=== PATIENT | male | born 1995 | race Caucasian/White ===

== ENCOUNTER 2016-10-05 15:43 | Inpatient (IN) | payer OTHER ==
--- NOTE | 2016-10-05 16:13 | EDPHY ---
H & P Stated Complaint: R jaw pain;?TMJ;got acupuncture last Sat & Mon; started swelling yesterday Time Seen by Provider: 10/05/16 16:12 - Personal History Current Tetanus Diphtheria and Acellular Pertussis (TDAP): Yes Tetanus Vaccine Date: < 10 years - Medical/Surgical History Hx Asthma: No Hx Chronic Respiratory Disease: No Hx Diabetes: No Hx Cardiac Disease: No Hx Renal Disease: No Hx Cirrhosis: No Hx Alcoholism: No Hx HIV/AIDS: No Hx Splenectomy or Spleen Trauma: No Other PMH: cleft lip surgery, testicular torsion prevention, tonsilectomy - Social History Smoking Status: Never smoked Constitutional: Initial Vital Signs Temperature (C) 37 C 10/05/16 15:50 Heart Rate 103 H 10/05/16 15:50 Respiratory Rate 16 10/05/16 15:50 Blood Pressure 137/89 H 10/05/16 15:50 O2 Sat (%) 99 10/05/16 15:50 O2 Delivery Mode Room Air Allergies/Adverse Reactions: No Known Allergies Allergy (Verified 10/05/16 15:55) Home Medications: Medication Instructions Recorded Cyclobenzaprine [Flexeril 10 MG 10 mg PO 10/05/16 (*)] Medical Decision Making - Diagnostics Imaging: Imaging Impressions Face CT 10/05/16 16:39 Impression: 1. Osteomyelitis of the right side of the mandible, with a small associated subperiosteal abscess along the lateral cortex of the mandible near the junction of the body and ramus. No associated dental caries. 2. Diffuse right-sided soft tissue swelling and inflammation of the right masseter and to a lesser degree pterygoid muscles. No evidence of intramuscular fluid collection. 3. No involvement of the deep spaces of the neck. The airway is widely patent. Findings discussed with Emergency Department physician, Wyatt Concepcion M.D., on October 05, 2016 at 1750 hours. ED Course/Re-evaluation: CHIEF COMPLAINT: Right facial swelling HISTORY OF PRESENT ILLNESS: The patient is a 20 y/o male presenting with acute onset right facial swelling onset about 24 hour ago. He initially developed pain near his right mandible 3 weeks ago. He was evaluated by his dentist who performed an x-ray that showed no odontogenic pathology and had patient try wearing a border guard for his symptoms. His pain has persisted, so he saw an rubber boots and shoes repairer twice this week without improvement of his symptom. Last night he developed right-sided facial swelling above the initial source of his pain that significantly worsened today. He denies fever, redness, difficulty swallowing or breathing, or other systemic symptoms. He has never experienced symptoms like this previously. ant and post cervical lymphnodes right facial swelling over parotid gland no erythema or systemic illness REVIEW OF SYSTEMS: A 10 point review of systems was performed and is negative with the exception of the elements mentioned in the history of present illness. PHYSICAL EXAM: HR, BP, O2 Sat, RR. Temp noted General Appearance: Alert, well hydrated, appropriate, and non-toxic appearing. Head: Atraumatic without scalp tenderness or obvious injury Eyes: Pupils equal, round, reactive to light and accommodation, EOMI, no trauma , no injection. Ears: Clear bilaterally, no perforation, normal landmarks Nose: Atraumatic, no rhinorrhea, clear. Throat: There is no erythema or exudates, no lesions, normal tonsils, mucus membranes moist. Neck: Supple, nontender, cervical anterior and posterior lymphadenopathy. Respiratory: No retractions, no distress, no wheezes, and no accessory muscle use. Lungs are clear to auscultation bilaterally. Neurological: Alert, appropriate, and interactive. The patient has normal DTRs and non-focal cranial nerves, motor, sensory, and cerebellar exam. Skin: No rashes, good turgor, no nodules on palpation. Past medical history: Denies Past surgical history: Cleft lip surgery, tonsillectomy Family history: noncontributory Social history: Friend at bedside. Reviewed dental panorama x-ray and dentist note that patient brought with him. DIAGNOSTICS/PROCEDURES/CRITICAL CARE TIME: I viewed the images myself on the PACS system. DIFFERENTIAL DIAGNOSIS: The differential diagnosis for the patient's facial swelling included but was not limited to osteomyelitis of the mandible, parotiditis, abscess, infectious causes such as meningitis, pharyngitis, mumps, mono. MEDICAL DECISION MAKING: This is a normally healthy 20 y/o male who presents with dramatic right-sided facial swelling onset less than 24 hours ago. He was evaluated by his dentist for pain along his right lower mandible 3 weeks ago, but the dentist was unable to find anything acute and recommended trying a border guard for his pain. Overnight the patient developed swelling and tenderness primarily over his right parotid gland. This may represent parotiditis or abscess. We will need to evaluate further with a maxillofacial CT with IV contrast. ISTAT ordered and 2 tabs PO Percocet administered. CT shows acute osteomyelitis of his mandible without abscess per Dr. Fernandez, radiologist. 1gm IV Ertapenem and 10mg IV Decadron administered. Oral surgeon paged. I discussed findings with the patient. He is NPO status. 1755: Consulted with Dr. Haro, oral surgeon. He plans to take the patient to surgery tonight - Data Points Laboratory Results: 10/05/16 16:38 POC Hgb 15.6 gm/dL gm/dL (14.5-17.3) POC Hct 46 % % (42.8-50.6) POC Sodium 142 mEq/L mEq/L (134-144) POC Potassium 3.8 mEq/L mEq/L (3.3-5.0) POC Chloride 103 mEq/L mEq/L (96-108) POC BUN 5 mg/dL L mg/dL (7-23) POC Creatinine 0.9 mg/dL mg/dL (0.8-1.5) POC Glucose 98 mg/dL mg/dL (70-100) Medications Given: Discontinued Medications Oxycodone/Acetaminophen (Percocet 5/325) 2 tab PO EDNOW ONE Stop: 10/05/16 17:23 Last Admin: 10/05/16 17:27 Dose: 2 tab Point of Care Test Results: 10/05/16 16:38 POC Sodium 142 POC Potassium 3.8 POC Chloride 103 POC BUN 5 L POC Creatinine 0.9 POC Glucose 98 Departure - Departure Disposition: [facility] Inpatient Acute Clinical Impression: Osteomyelitis, jaw acute Condition: Fair Referrals: NONE *PRIMARY CARE P,. [Primary Care Provider] - As per Instructions Report Scribed for: Wyatt Concecpion Report Scribed by: Brie You Date of Report: 10/05/16 Time of Report: 18:45
[2016-10-05] MEDS ORDERED: IOPAMIDOL (ISOVUE-300) 100 ML BTL IV ONE (17:21)
[2016-10-05] MEDS ORDERED: OXYCODONE/APAP 5/325 TAB PO ONE (17:22)
[2016-10-05] MEDS ORDERED: DEXAMETHASONE 10 MG/ML VIAL IVP ONE (17:53)
[2016-10-05] MEDS ORDERED: ERTAPENEM 1 GM in NS 100 ML IV ONE (17:53)
[2016-10-05] MEDS ORDERED: HYDROmorphONE/DILAUDID 1 MG/ML SYR IVP ONE (20:34)
[2016-10-05] MEDS ORDERED: ONDANSETRON 4 MG/2 ML VIAL IVP PRN (21:38)
[2016-10-05] MEDS ORDERED: ONDANSETRON DISINTEGRATING 4 MG TAB PO PRN (21:38)
[2016-10-05] MEDS ORDERED: HYDROmorphONE/DILAUDID 1 MG/ML SYR IVP PRN (21:38)
[2016-10-05] MEDS ORDERED: ACETAMINOPHEN 325 MG TAB PO PRN (21:38)
--- NOTE | 2016-10-05 22:15 | POSTOPPROG ---
Post Op Note Date of Operation: 10/05/16 Surgeon: Delonte Haro Anesthesia: GET(General Endotracheal) Pre-op Diagnosis: Right mandibular osteomyelitis w/associated abscess Post-op Diagnosis: Same Indication: Facial abscess Procedure: I&D of facial abscess, bone culture, bone biopsy Findings: Right vestibular and mandibular abscess Inf/Abcess present in the surg proc area at time of surgery?: Yes Depth: Deep Incisional (Fascial) EBL: Minimal Complications: none Drains: [place] (Placed in right mandibular vestibular abscess cavity) Specimen(s): Bone culture and biopsy right mandible. Aerobic and anaerobic culture.
--- NOTE | 2016-10-05 22:28 | GHP ---
[f rep st] HISTORY AND PHYSICAL DATE OF ADMISSION: 10/05/2016 CHIEF COMPLAINT: Jaw pain. HISTORY OF PRESENT ILLNESS: A 20-year-old healthy male who began with discomfort in his right jaw a pproximately 3 weeks ago, believed it was stress-related, noted that he was grinding his teeth in th e evenings when he slept. He sought out dental consultation, as well as consultation by a TMJ speci alist, was fitted for a instrument/control technician. Ultimately sought care also with deep tissue massage and acupu ncture. Over the course of the last 48 hours, patient has noted he has had increasing pain in the l ower margin of his right jaw, and then overnight had marked swelling of the right side of his cheek that began extending down into his neck, even after presented to the emergency department. He denie s any subjective fevers or chills. Has had some difficulty opening his jaw completely since the swe lling has gotten worse. He does note that he did not have improvement in his symptoms with the nigh t guard and that his symptoms were clearly not high up in his TM joint, but actually down in the low er part of his jaw. Denied any chest pain, shortness of breath, nausea, vomiting, abdominal discomf ort, changes in his bowel patterns. PAST MEDICAL HISTORY: None. SOCIAL HISTORY: Denies tobacco, recreational, alcohol, and marijuana use. FAMILY HISTORY: Negative for periodontal disease. REVIEW OF SYSTEMS: A 10-point review of systems is negative with the exception of that reported in the HPI. PHYSICAL EXAMINATION: VITAL SIGNS: Blood pressure is 133/81, heart rate 103, respiratory rate 16, 97% on room air, 36.7. GENERAL: This is a healthy-appearing young male in no acute distress. HEEN T: Notable for marked swelling of the right cheek. There are palpable nodes in the right jaw, tend er, with swelling extending into the anterior neck. Oral examination shows swelling of the right [place]. Posterior oropharynx appears clear. CARDIAC: Patient is regular rate and rhythm. PULMONARY: Clear to auscultation bilaterally. GASTROINTESTINAL: Positive bowel sounds. Abdomen is soft and nontender. MUSCULOSKELETAL: Negative for any lower extremity edema. SKIN: Negative for any rash es. NEUROLOGIC: Patient is alert and oriented x3. PSYCHIATRIC: He is pleasant and cooperative on interview and examination. DATA: Sodium 142, hematocrit 46, creatinine 0.9. Facial CT, which I personally reviewed and interp reted, shows osteomyelitis of the right side of the mandible with a small associated subperiosteal a bscess, diffuse right-sided soft tissue swelling and inflammation of the masseter muscle is noted. ASSESSMENT AND PLAN: 1. This is a 20-year-old male presenting with acute mandibular osteomyelitis with no associated den joni caries visualized on CT imaging. Oromaxillary Surgery as well as Infectious Disease have been c onsulted from the emergency department. Blood cultures have been obtained. The patient is going to go the operating room this evening for drainage of the abscess, as well as bone cultures and bone b iopsies. The differential certainly would be concerning for an underlying osseous abnormality initi ating this abscess, that appears not to be associated with any tooth. Will treat with Unasyn initia lly and wait for culture results. 2. Diet: N.P.O. for the operating room. 3. Prophylaxis: Will hold for now, as he is taken to the operating room. He is young and expect h e will be able to ambulate without complication. DISPOSITION: I expect greater than 2 midnights. Will require some time for diagnostics related to his bone biopsy and cultures prior to long-term decisions related to treatment of his osteomyelitis. I have discussed the case with the oral surgeon; he will take the patient to the operating room th is evening. /[id number]/MODL
[2016-10-05] MEDS ORDERED: LIDO/EPI 2%** Not for Epidural 20 ML MDV ONE (22:35)
[2016-10-05] MEDS ORDERED: BACITRACIN 50,000 UNITS/10 ML SYR IRR ONE (22:36)
[2016-10-05] MEDS ORDERED: POLYMYXIN B SULFATE 500,000 UNIT/10 ML SYR IRR ONE (22:36)
[2016-10-05] MEDS ORDERED: MIDAZOLAM 2 MG/2 ML VIAL ONE (22:39)
[2016-10-05] MEDS ORDERED: PROPOFOL/EMULSION 500 MG/50 ML BOTTLE IV ONE (22:43)
[2016-10-05] MEDS ORDERED: fentaNYL 250 MCG/5 ML INJ ONE (22:44)
[2016-10-05] MEDS ORDERED: SUCCINYLCHOLINE CHLORIDE*ANESTHESIA ONLY*200 MG/10 ML SYR IVP ONE (22:47)
--- NOTE | 2016-10-05 22:58 | GCON ---
[f rep st] CONSULTATION ORAL \T\ MAXILLOFACIAL SURGERY CHIEF COMPLAINT: I have right-sided facial swelling that is painful and started yesterday. HISTORY AND PHYSICAL: The patient is a previously healthy 20-year-old male who has been treated for the last 3 weeks for suspected temporomandibular joint disorder. He has had pain to the right side of his face that was determined not to be odontogenic in origin. Over the last 48 hours, he began to experience slight right-sided facial swelling which has now rapidly expanded and increased in size over the last 12 hours. He was seen by his general dentist today, who once again ruled out an odontogenic process and referred the patient to the emergency department for evaluation. Patient reports trismus, which is also 2 days in duration but denies dysphagia, dyspnea, odynophagia. Overall, the patient states that he feels very healthy, even with the new onset of right-sided facial swelling. The patient had his wisdom teeth removed 3 years ago with a benign postoperative course, outside of alveolar osteitis. PAST MEDICAL HISTORY: Patient denies a history of cardiac, pulmonary, renal or hepatic disease. MEDICATIONS: Multivitamin. ALLERGIES: No known drug allergies. SOCIAL HISTORY: Recreational marijuana use. REVIEW OF SYSTEMS: Ten point review of systems completed and negative, unless otherwise noted in HPI. PHYSICAL EXAMINATION: GENERAL: In general, the patient is awake, alert and oriented, he is lying comfortably upright in bed without showing signs of odynophagia. No obvious secretions noted. HEAD AND NECK: The patient has substantial right-sided facial swelling which extends below the inferior border of his mandible. The area is sensitive to palpation but there is no obvious erythema. The area is relatively soft without obvious hard cellulitis, except isolated directly over the ramus. Intraoral examination reveals trismus to approximately 30 mm. There is right vestibular fullness which is tender to palpation. There is no obvious signs of dental decay or a source for his swelling. The patient's hygiene is good. No obvious floor of mouth swelling or airway deviation noted. Neck examination does not reveal any significant lymphadenopathy. RADIOGRAPHS: CT scan reveals a suspected right mandibular osteomyelitis posterior to the 2nd molar. No obvious signs of odontogenic process causing the infection. There is a lytic bone lesion and associated cortical perforation with a moth-eaten appearance to the left ramus cortex. ASSESSMENT/PLAN: The patient is a previously healthy 20-year-old male with suspected right mandibular ramus osteomyelitis of unknown origin. Findings were discussed in detail with the patient, all questions were answered. I informed the patient that I would like to take him to the operating room tonight to perform incision and drainage of the left vestibular abscess, obtain a bone culture as well as a bone biopsy. He is comfortable with this plan. I have consulted Infectious Disease who has recommended obtaining a blood culture , which the emergency department has done. They have also recommended starting the patient on Unasyn IV. I have also consulted the hospitalist to help with the admission of the patient. They will admit him onto their service for IV antibiotics. Signed and verbal consent was obtained after discussing the risks , benefits, consequences, complications of the procedure. The patient has been n.p.o. since 4:00 today. /[id number]/MODL MTDD
[2016-10-05] MEDS ORDERED: ONDANSETRON 4 MG/2 ML VIAL ONE (23:35)
[2016-10-05] MEDS ORDERED: NEOSTIGMINE METHYLSULFATE 5 MG/5 ML SYR ONE (23:46)
[2016-10-05] MEDS ORDERED: GLYCOPYRROLATE 0.2 MG/1 ML VIAL ONE (23:46)
[2016-10-06] MEDS: AMPICILLIN/SULBACTAM 3 GM in NS 100 ML IV SCH ×5 (01:04→23:09)
[2016-10-06] MEDS: HYDROCODONE/APAP 5/325 TAB PO PRN ×5 (01:06→19:19)
--- NOTE | 2016-10-06 03:38 | GOP ---
[f rep st] OPERATIVE REPORT DATE OF OPERATION: SURGEON: Delonte Haro DDS ANESTHESIA: General nasotracheal anesthesia. PREOPERATIVE DIAGNOSIS: 1. Right mandibular abscess. 2. Right mandibular vestibular abscess. 3. Possible osteomyelitis. POSTOPERATIVE DIAGNOSIS: 1. Right mandibular abscess. 2. Right mandibular vestibular abscess. 3. Possible osteomyelitis. PROCEDURE PERFORMED: 1. Incision and drainage of right mandibular and right vestibular space abscess. 2. Deep bone biopsy, right mandibular ramus. 3. Bone culture, right mandibular ramus. 4. Anaerobic and aerobic culture of soft tissue abscess of the mandible. FINDINGS: Abscess in the soft tissue adjacent to the right ramus, as well as the right mandibular marrow space. ESTIMATED BLOOD LOSS: Minimal. INDICATIONS: The patient is a previously healthy 20-year-old male who was seen in the emergency department earlier today for right-sided facial swelling and abscess with suspected osteomyelitis. Risks, benefits, consequences, complications of the procedure were discussed in detail. Signed and verbal consent was obtained. N.p.o. and escort were verified. DESCRIPTION OF PROCEDURE: The patient was brought to the operating room and following successful nasotracheal intubation was prepped and draped in a normal sterile fashion. 8 cc of 2% lidocaine with 1:100,000 epinephrine was infiltrated into the right mandibular vestibule. An 18 gauge syringe was used to aspirate the abscess cavity and the purulent material was sent for aerobic and anaerobic culture. A #15 blade was used to make a ramus-exposing incision through the mucosa adjacent to the right ramus. Dissection was carried down to the level of the bone with a Bovie electrocautery. The lateral ramus was exposed via subperiosteal dissection with a #9 periosteal elevator. A perforation in the right ramus cortex was noted and a curved and straight osteotome and mallet were used to create an outline adjacent to the cortical perforation that was approximately 1cm x 1cm in size. This bone was elevated with a straight osteotome and a portion was sent for a deep bone biopsy. The other portion was sent for bone culture. Purulent exudate was noted to be coming from the right mandibular marrow space. Thorough irrigation with antibiotic-impregnated normal saline was performed in this region with 250 cc of fluid. A [place] drain was placed into the abscess cavity and was secured to the mucosa with a 3-0 silk suture. Throat screen and bite block were removed. Hemostatic sponge was placed. The patient was allowed to awaken from anesthesia and was extubated and transported to the PACU in stable condition. DISPOSITION: The patient will be admitted to the hospitalist service for IV antibiotics, as well as Infectious Disease consultation. /[id number]/MODL MTDD
[2016-10-06 05:17] LABS: % IMMATURE GRANULYOCYTES 0.6 % (0.0-1.1); ABSOLUTE IMMATURE GRANULOCYTES 0.06 10^3/uL (0.00-0.10); ADD DIFF? NO; ADD MORPH? NO; ADD SCAN? NO; ATYPICAL LYMPHOCYTE FLAG 10 (0-99); FRAGMENT RBC FLAG 0 (0-99); HEMATOCRIT 42.5 % (40.0-51.0); HEMOGLOBIN 14.4 g/dL (13.7-17.5); LEFT SHIFT FLG 0 (0-99); LIPEMIA HEMOLYSIS FLAG 90 (0-99); MEAN CELL HEMOGLOBIN 31.3 pg (27.9-34.1); MEAN CELL HEMOGLOBIN CONCENTR. 33.9 g/dL (32.4-36.7); MEAN CELL VOLUME 92.4 fL (81.5-99.8); MEAN PLATELET VOLUME 10.1 fL (8.7-11.7); PLATELET CLUMPS FLAG 0 (0-99); PLATELET COUNT 317 10^3/uL (150-400); RED CELL DISTRIBUTION WIDTH 11.4 % (11.5-15.2)
[2016-10-06 05:23] LABS: ANION GAP 11 mEq/L (8-16); CALCIUM 9.4 mg/dL (8.5-10.4); CARBON DIOXIDE 24 mEq/l (22-31); CHLORIDE 106 mEq/L (97-110); CREATININE 0.7 mg/dL (0.7-1.3); GLOMERULAR FILTRATION RATE > 60; GLUCOSE 138 mg/dL (70-100); SODIUM 141 mEq/L (134-144)
--- NOTE | 2016-10-06 10:29 | GCON ---
[f rep st] CONSULTATION INFECTIOUS DISEASE CONSULTATION DATE OF CONSULTATION: 10/06/2016 REASON FOR CONSULTATION: Right mandibular osteomyelitis. HISTORY OF PRESENT ILLNESS: This is a 20-year-old healthy male who developed right-sided jaw pain approximately three weeks ago. He has seen multiple providers, including a dentist and TMJ specialist who felt that he had TMJ from clenching his teeth. He has undergone therapy with acupuncture and massage. The pain has been so severe that it keeps him from sleeping at night where he wakes up and has to put hot cloths on his face. He has gotten some small amount of relief from taking NSAIDs and Flexeril. No fevers, chills, night sweats. Some loss of weight due to decreased p.o. intake from pain of the right jaw. On Tuesday, October 04, 2016, patient underwent massage of the right neck and face with subsequent marked increase in swelling. He presented to the emergency room yesterday in the afternoon and was subsequently found to have right subperiosteal fluid collection approximately 1 cm on the lateral body of the mandible on the right with associated cortical dehiscence and lytic process consistent with adjacent osteomyelitis. Interestingly, no clear tooth was associated. The patient was taken to the emergency room yesterday evening and was found to have purulent material in the marrow of his right mandible. The area was debrided and sent for culture and biopsy. The patient received 1 dose of ertapenem in the emergency room prior to blood cultures and subsequently was placed on Unasyn per Infectious Disease recommendations. In addition, the patient was given 1 dose of steroids in the emergency room. PAST MEDICAL & SURGICAL HISTORY: He had wisdom teeth extraction 3 years ago, and a rib bone spur removal within the last year. SOCIAL HISTORY: The patient is a college graduate. He desires to get a Master' s in engineering. But currently is living in the [place] area working for [employer]. He has been in [place] for approximately 10 years. He grew up in [place]. He has previously had heavy alcohol, but the last 3 weeks none. He uses marijuana as recreational. No IV drug use. He is currently single. Not sexually active for 3 years. His preference is women. He reports negative HIV testing within the interval. FAMILY HISTORY: Positive for heart disease. ALLERGIES: NKDA. MEDICATIONS: Unasyn 3 g IV q.6, Dilaudid, Zofran, [place]. REVIEW OF SYSTEMS: A complete 10-point review of systems was performed and is negative except as mentioned in the HPI. In addition, he does report right lower lip numbness. He also denies prior history of pharyngitis. PHYSICAL EXAM: VITAL SIGNS: Blood pressure 108/59, heart rate 53, respiratory rate 16, saturation 98% on room air, temperature 36.1. GENERAL: This is a very pleasant young male sitting up in bed, in no acute distress. HEENT: He has obvious right facial swelling along the jaw line without erythema. Mild tenderness to palpation. No fluctuance. No lymphadenopathy was detected. Tongue was midline. His mucous membranes were slightly dry. He had packing in place on the right side of his mouth. His teeth appeared healthy. No obvious gum disease. NECK: Supple. No lymphadenopathy. CARDIOVASCULAR: Bradycardic. Regular rate. No murmurs. CHEST: Clear to auscultation bilaterally. ABDOMEN: Soft, nontender. Bowel sounds are present. EXTREMITIES : No clubbing, cyanosis, or edema. No peripheral stigmata of endocarditis. NEUROLOGIC: He is alert and oriented x4, with fluent speech and appropriate insight. LABORATORY DATA: White count 9.9, hematocrit 42, platelets 317, with 86% neutrophils, 8% lymphocytes, creatinine is 0.8. Blood cultures were collected on 10/05/2016, at 2145, and the patient received 1 dose of ertapenem prior to the collection. Gram stain and cultures from the OR are pending. IMAGING: CT scan as per HPI. ASSESSMENT: This is a 20-year-old male who had progressive right jaw pain over a 3-week period who subsequently was found to have a periosteal abscess and associated osteomyelitis on the right side of the mandible, curiously not associated with a tooth specifically. Unclear specific portal associated with this mandibular infectious process, but nonetheless suspect direct extension from the oral cavity making, staphylococcus, streptococcus, and anaerobes most pertinent organisms. PLAN: 1. We will await culture and bone biopsy data. 2. The patient will most likely need at least 2 weeks, and possibly 4 weeks, of IV antibiotics while awaiting additional laboratory data. Discussed PICC line placement with the patient and need for remaining in hospital for another day or 2 for additional microbiologic data. 3. Follow blood cultures. No clear distal source. For example, patient denies recent history of pharyngitis; nonetheless, critical to continue to monitor blood cultures. Unfortunately, the data is modified due to treatment with antibiotics prior. 4. The patient should receive HIV and hepatitis screening. This was discussed with the patient at the bedside and he is aware. Thank you for this consultation. We will continue to follow on a daily basis. /[id number]/MODL MTDD
[2016-10-06] MEDS: CHLORHEXIDINE GLUCONATE 15 ML UDL PO SCH ×2 (10:51→23:10)
[2016-10-06 11:33] LABS: ALBUMIN 4.2 g/dL (3.5-5.0); BILIRUBIN,TOTAL 0.8 mg/dL (0.1-1.4); BILIRUBIN-CONJUGATED 0.5 mg/dL (0.0-0.5); BILIRUBIN-UNCONJUGATED 0.3 mg/dL (0.0-1.1); C-REACTIVE PROTEIN 59.3 mg/L (<10.0); TOTAL PROTEIN 6.8 g/dL (6.3-8.2)
--- NOTE | 2016-10-06 16:03 | HOSPPROG ---
Hospitalist Progress Note Assessment/Plan: * mandibular abscess and osteomyelitis * plan for 2 weeks of IV antibiotics per Infectious Disease * awaiting cultures * continue pain control Subjective: Feeling better. No new complaints Objective: Vital Signs Temp Pulse Resp BP Pulse Ox 36.4 C 48 L 16 124/70 H 97 10/06/16 15:02 10/06/16 15:02 10/06/16 15:02 10/06/16 15:02 10/06/16 15:02 Microbiology 10/05/16 23:27 Gram Stain - Final Head - Swab 10/05/16 23:27 Gram Stain - Final Head - Swab Laboratory Results 10/06/16 04:17 10/06/16 04:17 10/05/16 10/06/16 10/07/16 05:59 05:59 05:59 Intake Total 1500 Output Total 1310 Balance 190 - Physical Exam Constitutional: no apparent distress, appears nourished, not in pain Eyes: anicteric sclera, EOMI Ears, Nose, Mouth, Throat: moist mucous membranes Respiratory: no respiratory distress Skin: warm Neurologic: AAOx3 Psychiatric: interacting appropriately, not anxious, not encephalopathic, thought process linear ICD10 Worksheet Patient Problems: Problems Problem Status Onset Osteomyelitis, jaw acute Acute rib bone spur Acute
--- NOTE | 2016-10-06 20:40 | SOAPPROG ---
SOAP Progress Note Assessment/Plan: Assessment: POD #1 following I&D of mandibular abscess, bone biopsy, bone culture. The patient is feeling much better. ID is following. Awaiting recs. Plan: 1. ID will give final recs once bone culture and bone biopsy. Will determine ABX and length of course 2. I have asked the patient to irrigate the abscess after every meal until the incision closes. 3. Nurses can remove the Thad drain tomorrow. 4. Patient to perform jaw stretching exercises 5x per day 5. Patient to f/u in our clinic next Sunday. Please call [phone] for appointment 6. Please call my cell with questions [phone]. Dr. Nara Perez will be covering call for me this weekend 10/06/16 20:35 10/06/16 20:45 Subjective: POD #1 following I&D of mandibular abscess, bone biopsy, bone culture. The patient has been taking good PO. Controlling pain with PO pain pills 0-3/10. Patient is voiding but not ambulating. I have encouraged ambulation. Objective: Vital Signs Temp Pulse Resp BP Pulse Ox 36.4 C 81 12 129/76 H 98 10/06/16 19:33 10/06/16 19:33 10/06/16 19:33 10/06/16 19:33 10/06/16 19:33 Microbiology 10/05/16 23:27 Gram Stain - Final Head - Swab 10/05/16 23:27 Gram Stain - Final Head - Swab Laboratory Results 10/06/16 04:17 10/06/16 04:17 10/05/16 10/06/16 10/07/16 05:59 05:59 05:59 Intake Total 1500 700 Output Total 1310 1600 Balance 190 -900 WBC 9.94 which is expected following I&D. Thad in place, no purulence, facial swelling significantly less compared to yesterday. Less pain to palpation. Overall patient is looking good. trismus is resolving, however, MVO is still approximately 30mm - Time Spent With Patient Time Spent With Patient: 20 minutes ICD10 Worksheet Patient Problems: Problems Problem Status Onset Osteomyelitis, jaw acute Acute rib bone spur Acute
[2016-10-06] MEDS: KETOROLAC 15 MG/1 ML SDV IVP SCH (22:10)
[2016-10-06] MEDS: oxyCODONE IR 5 MG TAB PO PRN (23:11)
[2016-10-07] MEDS: KETOROLAC 15 MG/1 ML SDV IVP SCH ×4 (02:24→20:06)
[2016-10-07] MEDS: oxyCODONE IR 5 MG TAB PO PRN ×4 (04:28→18:25)
[2016-10-07 04:48] LABS: % IMMATURE GRANULYOCYTES 0.5 % (0.0-1.1); ABSOLUTE IMMATURE GRANULOCYTES 0.04 10^3/uL (0.00-0.10); ADD DIFF? NO; ADD MORPH? NO; ADD SCAN? NO; ATYPICAL LYMPHOCYTE FLAG 20 (0-99); FRAGMENT RBC FLAG 0 (0-99); HEMATOCRIT 40.3 % (40.0-51.0); HEMOGLOBIN 13.5 g/dL (13.7-17.5); LEFT SHIFT FLG 0 (0-99); LIPEMIA HEMOLYSIS FLAG 80 (0-99); MEAN CELL HEMOGLOBIN 30.6 pg (27.9-34.1); MEAN CELL HEMOGLOBIN CONCENTR. 33.5 g/dL (32.4-36.7); MEAN CELL VOLUME 91.4 fL (81.5-99.8); MEAN PLATELET VOLUME 9.6 fL (8.7-11.7); PLATELET CLUMPS FLAG 0 (0-99); PLATELET COUNT 331 10^3/uL (150-400); RED BLOOD CELL COUNT 4.41 10^6/uL (4.40-6.38); RED CELL DISTRIBUTION WIDTH 11.4 % (11.5-15.2)
[2016-10-07] MEDS: AMPICILLIN/SULBACTAM 3 GM in NS 100 ML IV SCH (06:18)
[2016-10-07] MEDS ORDERED: ALTEPLASE 2 MG VIAL IVP PRN (11:21)
--- NOTE | 2016-10-07 11:27 | PDIAF ---
- Diagnosis Diagnosis: Osteomyelitis right mandible with subperiosteal abscess Code Status: Full Code - Medication Management Discharge Medications: Medications to Continue on Transfer Multivitamins [Multivitamin (*)] 1 each PO DAILY 10/05/16 [Last Taken 10/04/16] Custodial Antibiotics: Ertapenem 1 g IV daily Custodial Antibiotic Stop Date: 10/26/16 Discharge Medications: Refer to the Discharge Home Medication list for PRN reason. PICC Care - Routine: Yes - Labs/Radiology CBC Date: 10/12/16 (Fax to Dr. Murguia [phone]) CMP Date: 10/12/16 (Fax to Dr. Murguia [phone]) - Follow Up Care Current Providers and Referrals: NONE *PRIMARY CARE P,. [Primary Care Provider] - As per Instructions Justyna Murguia MD [Medical Doctor] - (We will call the patient for an appointment.)
--- NOTE | 2016-10-07 11:30 | PCMIDPN ---
Assessment/Plan: 1. Osteomyelitis of the right mandible with subperiosteal abscess status post incision and drainage: Cultures are growing 4+ alpha hemolytic strep, which is not a surprise. In anticipation of discharge tomorrow, will change Unasyn to ertapenem for ease of administration. PICC line today. Patient will likely need several weeks of therapy, both intravenous and oral therapy moving forward. Pathology is pending. This was all explained to him today. Inter agency discharge form has been filled out, and our office will call him for an appointment. 2. Miscellaneous: Hepatitis C antibody negative, HIV antibody negative. This was conveyed to the patient. 10/07/16 11:33 Subjective: Anxious. Wondering why everyone is asking him about IV drug use. No diarrhea. Spent time explaining to him the plan moving forward. Objective: Unasyn 3 g IV q.6 hours day 1. (antibiotics day 2) Afebrile Vital Signs Temp Pulse Resp BP Pulse Ox 36.3 C 54 L 16 109/73 94 10/07/16 08:00 10/07/16 08:00 10/07/16 08:00 10/07/16 08:00 10/07/16 08:00 Microbiology 10/05/16 23:27 Gram Stain - Final Head - Swab 10/05/16 23:27 Gram Stain - Final Head - Swab Laboratory Results 10/07/16 04:25 10/06/16 04:17 10/06/16 10/07/16 10/08/16 05:59 05:59 05:59 Intake Total 1500 2700 Output Total 1310 1600 Balance 190 1100 C-Reactive Protein 59.3 mg/L (<10.0) H 10/06/16 04:17 Mouth abscess is growing 4+ alpha hemolytic strep Blood cultures negative - Physical Exam General Appearance: alert, no apparent distress EENT: other ([place] drain emanating from posterior aspect of right cheek inside oropharynx. No obvious discharge from the Thad. Still has some facial swelling on the right, but improved per the patient.) Respiratory: other (Clear to auscultation anterolaterally.) Cardiac/Chest: regular rate, rhythm, No systolic murmur Abdomen: non-tender, soft Skin: No rash ICD10 Worksheet Patient Problems: Problems Problem Status Onset Osteomyelitis, jaw acute Acute rib bone spur Acute
[2016-10-07] MEDS: ERTAPENEM 1 GM in NS 100 ML IV SCH (12:02)
[2016-10-07] MEDS: CHLORHEXIDINE GLUCONATE 15 ML UDL PO SCH ×2 (13:24→20:06)
[2016-10-07 14:08] LABS: HEPATITIS Bs Ab QUANT <5.0 mIU/mL
--- NOTE | 2016-10-07 14:28 | HOSPPROG ---
Hospitalist Progress Note Assessment/Plan: 20 yo M with no pmh presenting with jaw pain found to have acute mandibular osteomyelitis # right mandibular osteomyelitis with subperiosteal abscess: s/p I&D and bone culture, wound cultures growing alpha hemolytic strep, has been on unasyn with plan to switch to ertapenem today in anticipation of dc. Etiology unclear, HIV/ hepatitis negative. Pathology pending. Will need prolonged abx course to be deteremined per ID. Face CT personally reviewed with right mandible osteo noted , no airway involvement. # jaw pain: in setting of above, pain seems to be improving some, no e/o airway compromise, eating well # dispo: likely dc in am on IV abx Patient new to my care. Old records reviewed and summarized as above. Subjective: no significant overnight events, patient sleepy but otherwise feeling well, still with pain in his jaw Objective: Vital Signs Temp Pulse Resp BP Pulse Ox 36.4 C 52 L 16 114/88 H 99 10/07/16 11:29 10/07/16 11:29 10/07/16 11:29 10/07/16 11:29 10/07/16 11:29 Microbiology 10/05/16 23:27 Gram Stain - Final Head - Swab 10/05/16 23:27 Gram Stain - Final Head - Swab Laboratory Results 10/07/16 04:25 10/06/16 04:17 10/06/16 10/07/16 10/08/16 05:59 05:59 05:59 Intake Total 1500 2700 Output Total 1310 1600 Balance 190 1100 awake alert nad anicteric right jaw ttp, no erythema rrr no mrg cta b soft nt nd no cce warm dry well perfused ICD10 Worksheet Patient Problems: Problems Problem Status Onset rib bone spur Acute Osteomyelitis, jaw acute Acute
[2016-10-07] MEDS ORDERED: BISACODYL 10 MG SUPP PR PRN (17:32)
[2016-10-07] MEDS ORDERED: MAGNESIUM HYDROXIDE 30 ML UDCUP PO PRN (17:32)
[2016-10-07] MEDS ORDERED: LACTULOSE 20 GM/30 ML UDCUP PO PRN (17:32)
[2016-10-07] MEDS ORDERED: POLYETHYLENE GLYCOL 3350 17 GM PKT PO PRN (17:32)
[2016-10-07] MEDS: SENNOSIDES/DOCUSATE SODIUM TAB PO SCH (20:06)
[2016-10-08] MEDS: oxyCODONE IR 5 MG TAB PO PRN ×2 (03:18→09:18)
[2016-10-08] MEDS: KETOROLAC 15 MG/1 ML SDV IVP SCH ×2 (03:18→09:19)
[2016-10-08 08:03] VITALS: BP 120/68; PULSE 50; RESP 16; TEMP 98.1; O2SAT 96
--- NOTE | 2016-10-08 08:54 | PDDCSUM ---
Discharge Summary Discharge Summary: Dates of service 10/05-10/08/16 Discharge diagnosis: Consultations: oral surgery, ID Procedures performed: I&D right mandibular abscess, bone biopsy, PICC line placement Hospital course by problem: # right mandibular osteomyelitis with subperiosteal abscess: s/p I&D and bone culture, wound cultures growing strep intermedius, plan is to dc on ertapenem and continue treatment at least until 10/26, f/u with ID between now and then to determine ultimate length of treatment. HIV and hepatitis serologies negative, etiology unclear. # jaw pain: in setting of above, pain seems to be improving some, will dc on short course of oxycodone F/u with ID in the coming week, they will call with appt Path from bone biopsy pending Meds: see EHR, includes ertapenem until 10/26 Discharge required > 35 minutes of care, more than half in coordination of care
--- NOTE | 2016-10-08 08:54 | PDIAF ---
- Diagnosis Diagnosis: Osteomyelitis right mandible with subperiosteal abscess Code Status: Full Code - Medication Management Discharge Medications: Medications to Continue on Transfer Multivitamins [Multivitamin (*)] 1 each PO DAILY 10/05/16 [Last Taken 10/04/16] Acetaminophen [Tylenol 325mg (*)] 650 mg PO Q4HRS PRN #0 tab 10/08/16 [Last Taken Unknown] Alteplase [Cathflo Activase 2 mg (*)] 2 mg IVP PRN PRN #0 vial 10/08/16 [Last Taken Unknown] Ertapenem [INVanz] 1 gm IV DAILY #0 vial 10/08/16 [Last Taken Unknown] Ketorolac Tromethamine [Toradol] 10 mg PO Q6H #16 tab 10/08/16 [Last Taken Unknown] Polyethylene Glycol 3350 [Miralax 17 gm (*)] 17 gm PO DAILY PRN #0 pkt 10/08/16 [Last Taken Unknown] Sennosides/Docusate Sodium [Senokot-S] 1 - 2 tab PO BID #0 tab 10/08/16 [Last Taken Unknown] oxyCODONE IR [Oxycodone Ir (*)] 5 - 10 mg PO Q4HRS PRN #30 tab 10/08/16 [Last Taken Unknown] Broomcorn Sorter Antibiotics: Ertapenem 1 g IV daily [place]roomcorn Sorter Antibiotic Stop Date: 10/26/16 Discharge Medications: Refer to the Discharge Home Medication list for PRN reason. PICC Care - Routine: Yes - Orders Services needed: Registered Nurse, Certified Radio Despatcher Diet Recommendation: no restrictions on diet Diet Texture: Regular Texture Diet - Labs/Radiology CBC Date: 10/12/16 (Fax to Dr. Murguia [phone]) CMP Date: 10/12/16 (Fax to Dr. Murguia [phone]) - Follow Up Care Current Providers and Referrals: Justyna Murguia MD [Medical Doctor] - (We will call the patient for an appointment.) NONE *PRIMARY CARE P,. [Primary Care Provider] - As per Instructions
[2016-10-08] MEDS: ERTAPENEM 1 GM in NS 100 ML IV SCH (09:18)
[2016-10-08] MEDS: SENNOSIDES/DOCUSATE SODIUM TAB PO SCH (09:18)
[2016-10-08] MEDS: CHLORHEXIDINE GLUCONATE 15 ML UDL PO SCH (09:19)
== END 2016-10-08 11:12 | disposition home health service (06) | DRG 479 ==
LOC: OBSVTOIN 21:01 → F3E 10-06 00:34
PROVIDERS: ADMIT Dentist Oral and Maxillofacial Surgery; ATTEND Internal Medicine
PROC: 0NBT0ZX Excision of Right Mandible, Open Approach, Diagnostic (ICD-10-PCS; principal; 2016-10-05 22:30)
PROC: 0N9 Head and Facial Bones, Drainage (ICD-10-PCS; principal; 2016-10-05 22:30)
PROC: 0N9 Head and Facial Bones, Drainage (ICD-10-PCS; principal; 2016-10-05 22:30)
PROC: 02HV33Z Insertion of Infusion Device into Superior Vena Cava, Percutaneous Approach (ICD-10-PCS; 2016-10-07)
DX: M86.9 Osteomyelitis, unspecified (principal); M27.2 Inflammatory conditions of jaws; B95.4 Other streptococcus as the cause of diseases classified elsewhere
CPT/HCPCS: 82947-QW; 86708-90; 86709-90; 96365; C1751; G0472; J0295; J0330; J1170; J1335; J1885; J2250; J2405; J2704; J2710; J3010; Q9967

== ENCOUNTER → 2017-12-06 | Outpatient (CLI) | payer OTHER | LOC: BMCIMAGING 16:18 | PROVIDERS: ATTEND Internal Medicine | DX: J40 Bronchitis, not specified as acute or chronic (principal) ==

== ENCOUNTER 2018-01-13 20:21 | Emergency (ER) | payer OTHER ==
--- NOTE | 2018-01-13 20:44 | EDPHY ---
H & P Stated Complaint: "I smoked too much weed" Time Seen by Provider: 01/13/18 20:44 HPI/ROS: HPI CHIEF COMPLAINT: "I smoked too much weed" HISTORY OF PRESENT ILLNESS: Patient 22-year-old male, he presents emergency room by private vehicle after he states he smoked too much we this evening. Patient states he took 2 very large Bong Rips. He states he felt very anxious after this. Denies any chest pain or shortness of breath. States he started having anxiety attack and numbness and tingling in both hands. He decided come the emergency room for this. Patient states been over an hour and he is feeling less anxious and feeling better here in the emergency room. Denies any chest pain or shortness of breath. Past Medical History: Anxiety, pneumothorax Past Surgical History: This pneumothorax repair, bone spur removal Social History: Lives locally occasional marijuana use. Family History: Noncontributory ROS REVIEW OF SYSTEMS: A comprehensive 10 point review of systems is otherwise negative aside from elements mentioned in the history of present illness. Exam Constitutional nontoxic appearing in no acute distress, was anxious earlier triage nursing summary reviewed, vital signs reviewed, awake/alert. Eyes normal conjunctivae and sclera, EOMI, PERRLA. HENT normal inspection, atraumatic, moist mucus membranes, no epistaxis, neck supple/ no meningismus, no raccoon eyes. Respiratory clear to auscultation bilaterally, normal breath sounds, no respiratory distress, no wheezing. Cardiovascular rate normal, regular rhythm, no murmur, no edema, distal pulses normal. Gastrointestinal soft, non-tender, no rebound, no guarding, normal bowel sounds, no distension, no pulsatile mass. Genitourinary no CVA tenderness. Musculoskeletal no midline vertebral tenderness, full range of motion, no calf swelling, no tenderness of extremities, no meningismus, good pulses, neurovascularly intact. Skin pink, warm, & dry, no rash, skin atraumatic. Neurologic awake, alert and oriented x 3, AAOx3, moves all 4 extremities equally, motor intact, sensory intact, CN II-XII intact, normal cerebellar, normal vision, normal speech. Psychiatric normal mood/affect. Heme/Lymph/Immune no lymphadenopathy. Differential Diagnosis: Includes but is not limited to in a particular order marijuana intoxication, pneumothorax, acute anxiety attack, panic attack Medical Decision Making: Plan for this patient chest x-ray to rule out pneumothorax given Bong hit, EKG, and re-evaluation. Re-evaluation: Patient's chest x-ray one view reviewed negative for acute cardiopulmonary disease. EKG interpretation by me on record in [facility] system. Impression time of EKG 2049, this is sinus rhythm rate of 72 no signs of acute ischemia no signs of cardiac arrhythmia. Unremarkable nonischemic EKG. No signs of WPW or Brug[place]. 2151: Re-evaluation at this time the patient is resting comfortably he is, cooperative. He states he feels much better. He no longer has numbness or tingling in his hands. Vital signs stable. Chest x-ray an EKG unremarkable. Recommend he refrain from smoking marijuana doing Bong ribs. Return precautions discussed he understands return emergency room if develops worsening chest pain, shortness of breath, fever, vomiting. Source: Patient - Personal History Current Tetanus Diphtheria and Acellular Pertussis (TDAP): Yes Tetanus Vaccine Date: < 10 years - Medical/Surgical History Hx Asthma: No Hx Chronic Respiratory Disease: No Hx Diabetes: No Hx Cardiac Disease: No Hx Renal Disease: No Hx Cirrhosis: No Hx Alcoholism: No Hx HIV/AIDS: No Hx Splenectomy or Spleen Trauma: No Other PMH: cleft lip surgery, testicular torsion prevention, tonsilectomy - Social History Smoking Status: Never smoked Constitutional: Initial Vital Signs Temperature (C) 36.9 C 01/13/18 20:27 Heart Rate 88 01/13/18 20:27 Respiratory Rate 18 01/13/18 20:27 Blood Pressure 144/91 H 01/13/18 20:27 O2 Sat (%) 100 01/13/18 20:27 O2 Delivery Mode Room Air Allergies/Adverse Reactions: No Known Allergies Allergy (Verified 10/05/16 15:55) Home Medications: Medication Instructions Recorded NK [No Known Home Meds] 01/13/18 Medical Decision Making - Diagnostics Imaging Results: Imaging Impressions Chest X-Ray 01/13/18 20:49 Impression: Negative portable chest Departure - Departure Disposition: Home, Routine, Self-Care Clinical Impression: Anxiety Condition: Good Instructions: Anxiety (ED) Additional Instructions: 1. Refrain from smoking marijuana. 2. Return to the emergency room if you have any worsening symptoms questions or concerns. Referrals: NONE *PRIMARY CARE P,. [Primary Care Provider] - As per Instructions
--- NOTE | 2018-01-13 20:52 | CPEKG ---
Heart Rate: 72 RR Interval: 833 P-R Interval: 144 QRSD Interval: 88 QT Interval: 384 QTC Interval: 421 P [place]: 64 QRS [place]: 57 T Wave [place]: 40 EKG Severity - NORMAL ECG - EKG Impression: SINUS RHYTHM Electronically Signed By: Christopher Carias 13-Jan-2018 23:52:42
[2018-01-13 21:56] VITALS: BP 121/79
--- NOTE | 2018-01-18 11:31 | CPEKG ---
Heart Rate: 78 RR Interval: 769 P-R Interval: 128 QRSD Interval: 66 QT Interval: 424 QTC Interval: 484 P [place]: 71 QRS [place]: 57 T Wave [place]: 56 EKG Severity - ABNORMAL ECG - EKG Impression: SINUS RHYTHM EKG Impression: BIATRIAL ABNORMALITIES EKG Impression: BORDERLINE PROLONGED QT INTERVAL Electronically Signed By: Familia Forbes 19-Jan-2018 11:46:00
== END 2018-01-13 21:59 | disposition home or self-care (01) ==
DX: F41.9 Anxiety disorder, unspecified (principal)

== ENCOUNTER 2018-01-17 10:06 | Emergency (ER) | payer OTHER ==
--- NOTE | 2018-01-17 11:08 | EDPHY ---
H & P Stated Complaint: anxiety on waking today Time Seen by Provider: 01/17/18 10:36 - Personal History Tetanus Vaccine Date: < 10 years - Medical/Surgical History Hx Asthma: No Hx Chronic Respiratory Disease: No Hx Diabetes: No Hx Cardiac Disease: No Hx Renal Disease: No Hx Cirrhosis: No Hx Alcoholism: No Hx HIV/AIDS: No Hx Splenectomy or Spleen Trauma: No Other PMH: cleft lip surgery, testicular torsion prevention, tonsilectomy, bone spur removal from chest, anxiety - Social History Smoking Status: Never smoked Constitutional: Initial Vital Signs Temperature (C) 36.7 C 01/17/18 10:22 Heart Rate 66 01/17/18 10:22 Respiratory Rate 18 01/17/18 10:22 Blood Pressure 120/83 H 01/17/18 10:22 O2 Sat (%) 98 01/17/18 10:22 O2 Delivery Mode Room Air Allergies/Adverse Reactions: No Known Allergies Allergy (Verified 01/17/18 10:25) Home Medications: Medication Instructions Recorded NK [No Known Home Meds] 01/13/18 Medical Decision Making ED Course/Re-evaluation: CHIEF COMPLAINT: Anxiety HISTORY OF PRESENT ILLNESS: Patient with a history of anxiety especially when he uses alcohol and marijuana. He used some alcohol marijuana recently and felt very anxious. He has anxiety around the fact that his father when he was date of a cardiac abnormality. He has been thoroughly checked out for this. He is concerned about his racing heart rate and rapid breathing. By the time I arrived in the room this patient has normal heart rate and normal breathing. He did have some carpal pedal spasm initially which is resolved also. REVIEW OF SYSTEMS: A 10 point review of systems was performed and is negative with the exception of the elements mentioned in the history of present illness. PHYSICAL EXAM: HR, BP, O2 Sat, RR. Temp noted General Appearance: Alert, well hydrated, appropriate, and non-toxic appearing. Head: Atraumatic without scalp tenderness or obvious injury Eyes: Pupils equal, round, reactive to light and accommodation, EOMI, no trauma , no injection. Ears: Clear bilaterally, no perforation, normal landmarks Nose: Atraumatic, no rhinorrhea, clear. Throat: There is no erythema or exudates, no lesions, normal tonsils, mucus membranes moist. Neck: Supple, 2+ carotid upstroke, nontender, no lymphadenopathy. Respiratory: No retractions, no distress, no wheezes, and no accessory muscle use. Lungs are clear to auscultation bilaterally. Cardiovascular: Regular rate and rhythm, no murmurs, rubs, or gallops. Bilateral carotid, radial, dorsalis pedis, and posterior tibial pulses intact. Good capillary refill all extremities. Gastrointestinal: Abdomen is soft, nontender, non-distended, no masses, no rebound, no guarding, no peritoneal signs. Musculoskeletal: Normal active ROM of all extremities, atraumatic. Neurological: Alert, appropriate, and interactive. The patient has normal DTRs and non-focal cranial nerves, motor, sensory, and cerebellar exam. Skin: No rashes, good turgor, no nodules on palpation. Past medical history: Anxiety Past surgical history: None Family history: Cardiac abnormalities father of unspecified etiology Social history: Single, employed, uses a small amount of alcohol and marijuana which she has decided to never use again. DIAGNOSTICS/PROCEDURES/CRITICAL CARE TIME: The 12 lead EKG was interpreted by myself. See hard copy and/or "tracemaster" electronic copy for interpretation. Normal sinus mechanism no ischemia no rhythm disturbance DIFFERENTIAL DIAGNOSIS: The differential diagnosis for the patient's narrow complex tachycardia included but was not limited to various causes of sinus tachycardia such as dehydration and medicines, SVT, atrial flutter, atrial fibrillation, pulmonary causes. MEDICAL DECISION MAKING: This patient had a brief anxiety attack. It is resolved now. His i-STAT troponin and i-STAT chemistry are unremarkable his EKG is unremarkable we will refer him out for outpatient psychiatric services. He does not want any help stop drinking alcohol or marijuana he says he hardly ever uses a bony does he feels terrible and that is enough for him to stop. He will follow up with primary care. Departure - Departure Disposition: Home, Routine, Self-Care Clinical Impression: Anxiety Condition: Good Instructions: Generalized Anxiety Disorder (ED), Social Anxiety Disorder (ED) Referrals: NONE *PRIMARY CARE P,. [Primary Care Provider] - As per Instructions
--- NOTE | 2018-01-17 11:18 | CPEKG ---
Heart Rate: 53 RR Interval: 1132 P-R Interval: 160 QRSD Interval: 90 QT Interval: 416 QTC Interval: 391 P [place]: 80 QRS [place]: 51 T Wave [place]: 42 EKG Severity - NORMAL ECG - EKG Impression: SINUS RHYTHM Electronically Signed By: Wyatt Concepcion 17-Jan-2018 14:12:47
[2018-01-17 12:15] VITALS: BP 124/81
== END 2018-01-17 12:27 | disposition home or self-care (01) ==
DX: F41.9 Anxiety disorder, unspecified (principal)
CPT/HCPCS: 82435-PO; 82565-PO; 82947-PO; 84132-PO; 84295-PO; 84484-PO; 84520-PO; 85014-PO

== ENCOUNTER 2018-11-17 15:59 | Emergency (ER) | payer OTHER ==
--- NOTE | 2018-11-17 16:06 | EDPHY ---
H & P Time Seen by Provider: 11/17/18 16:03 HPI/ROS: CHIEF COMPLAINT: Resolve sharp anterior chest pain HISTORY OF PRESENT ILLNESS: The patient presents the emergency department after a brief episode of left sharp anterior chest pain that occurred while he was driving. The patient reported an isolated area of pain and tenderness in the costochondral region. Patient reports he has had episodic pain in that area. The patient denies any prior history of cardiac disease or pulmonary embolism. The patient is currently asymptomatic. The patient does ride his bike frequently without symptoms of exertional chest pain or shortness of breath. The patient denies any asymmetric calf pain or swelling. The patient currently denies any acute complaints. REVIEW OF SYSTEMS: A comprehensive 10 point review of systems is otherwise negative aside from elements mentioned in the history of present illness. Source: Patient Exam Limitations: No limitations - Personal History Tetanus Vaccine Date: < 10 years - Medical/Surgical History Hx Asthma: No Hx Chronic Respiratory Disease: No Hx Diabetes: No Hx Cardiac Disease: No Hx Renal Disease: No Hx Cirrhosis: No Hx Alcoholism: No Hx HIV/AIDS: No Hx Splenectomy or Spleen Trauma: No Other PMH: cleft lip surgery, testicular torsion prevention, tonsilectomy, bone spur removal from chest, anxiety - Social History Smoking Status: Never smoked - Physical Exam Exam: General Appearance: Alert, no distress Eyes: Pupils equal and round no pallor or injection ENT, Mouth: Mucous membranes moist Respiratory: There are no retractions, lungs are clear to auscultation Cardiovascular: Regular rate and rhythm Gastrointestinal: Abdomen is soft and nontender, no masses, bowel sounds normal Neurological: A&O, normal motor function, normal sensory exam, normal cranial nerves Skin: Warm and dry, no rashes Musculoskeletal: Neck is supple nontender Extremities: symmetrical, full range of motion Constitutional: Initial Vital Signs Temperature (C) 36.7 C 11/17/18 16:04 Heart Rate 62 11/17/18 16:04 Respiratory Rate 16 11/17/18 16:04 Blood Pressure 123/85 H 11/17/18 16:04 O2 Sat (%) 99 11/17/18 16:04 O2 Delivery Mode Room Air Allergies/Adverse Reactions: No Known Allergies Allergy (Verified 11/17/18 16:04) Home Medications: Medication Instructions Recorded NK [No Known Home Meds] 01/13/18 Medical Decision Making - Diagnostics EKG Interpretation: EKG: Complete interpretation has been separately recorded in the [facility] archive. Summary impression: Sinus rhythm, rate 55, no ST segment elevation or depression Imaging Results: Imaging Impressions Chest X-Ray 11/17/18 16:16 Impression: Normal. No acute process. ED Course/Re-evaluation: Patient presents the ED after an episode of brief resolved chest pain. The patient has no risk factors for coronary artery disease. There was a mild pleuritic component to the pain. Patient's EKG demonstrates no evidence of ischemia. The patient's troponin is normal. The patient's chest x-ray demonstrates no evidence of acute disease. The patient has a normal D-dimer which I feel adequately excludes pulmonary embolism in this low risk by Wells criteria patient. At this point time I do favor costochondritis is likely diagnosis. The patient has been advised to take ibuprofen and Tylenol as needed for recurrent symptoms. The patient will be discharged home from the emergency department at this point time. Differential Diagnosis: Differential diagnosis considered includes costochondritis, pneumothorax, pulmonary embolism, pericarditis, arrhythmia, acute coronary syndrome - Data Points Laboratory Results: Laboratory Results 11/17/18 16:15 11/17/18 16:15 11/17/18 11/17/18 11/17/18 16:19 16:15 16:15 WBC RBC Hgb Hct MCV MCH MCHC RDW Plt Count MPV Neut % (Auto) Lymph % (Auto) Clarke % (Auto) Eos % (Auto) Baso % (Auto) Nucleat RBC Rel Count Absolute Neuts (auto) Absolute Lymphs (auto) Absolute Monos (auto) Absolute Eos (auto) Absolute Basos (auto) Absolute Nucleated RBC Immature Gran % Immature Gran # D-Dimer 0.31 ug/mLFEU ug/mLFEU (0.00-0.50) Sodium 138 mEq/L mEq/L (135-145) Potassium 4.1 mEq/L mEq/L (3.5-5.2) Chloride 103 mEq/L mEq/L (97-110) Carbon Dioxide 25 mEq/l mEq/l (22-31) Anion Gap 10 mEq/L mEq/L (6-14) BUN 16 mg/dL mg/dL (7-23) Creatinine 0.9 mg/dL mg/dL (0.7-1.3) Estimated GFR > 60 Glucose 90 mg/dL mg/dL (70-100) Calcium 10.0 mg/dL mg/dL (8.5-10.4) POC Troponin I 0.00 ng/mL ng/mL (0.00-0.08) 11/17/18 16:15 WBC 5.57 10^3/uL 10^3/uL (3.80-9.50) RBC 5.02 10^6/uL 10^6/uL (4.40-6.38) Hgb 15.5 g/dL g/dL (13.7-17.5) Hct 46.8 % % (40.0-51.0) MCV 93.2 fL fL (81.5-99.8) MCH 30.9 pg pg (27.9-34.1) MCHC 33.1 g/dL g/dL (32.4-36.7) RDW 12.3 % % (11.5-15.2) Plt Count 288 10^3/uL 10^3/uL (150-400) MPV 9.5 fL fL (8.7-11.7) Neut % (Auto) 54.6 % % (39.3-74.2) Lymph % (Auto) 34.5 % % (15.0-45.0) Clarke % (Auto) 7.5 % % (4.5-13.0) Eos % (Auto) 2.7 % % (0.6-7.6) Baso % (Auto) 0.5 % % (0.3-1.7) Nucleat RBC Rel Count 0.0 % % (0.0-0.2) Absolute Neuts (auto) 3.04 10^3/uL 10^3/uL (1.70-6.50) Absolute Lymphs (auto) 1.92 10^3/uL 10^3/uL (1.00-3.00) Absolute Monos (auto) 0.42 10^3/uL 10^3/uL (0.30-0.80) Absolute Eos (auto) 0.15 10^3/uL 10^3/uL (0.03-0.40) Absolute Basos (auto) 0.03 10^3/uL 10^3/uL (0.02-0.10) Absolute Nucleated RBC 0.00 10^3/uL 10^3/uL (0-0.01) Immature Gran % 0.2 % % (0.0-1.1) Immature Gran # 0.01 10^3/uL 10^3/uL (0.00-0.10) D-Dimer Sodium Potassium Chloride Carbon Dioxide Anion Gap BUN Creatinine Estimated GFR Glucose Calcium POC Troponin I Point of Care Test Results: Chemistry 11/17/18 16:19 POC Troponin I 0.00 ng/mL ng/mL (0.00-0.08) Departure - Departure Disposition: Home, Routine, Self-Care Clinical Impression: Costochondritis, acute Condition: Good Instructions: Costochondritis (ED) Additional Instructions: 1. All testing done in the emergency department today demonstrates no evidence of an acute abnormality. 2. I do believe you had some transient inflammation of your cartilage. 3. Take Ibuprofen or Motrin 600 mg by mouth three times a day. 4. Return to the ED for markedly worsening symptoms or other concerns. 5. Follow up with your primary care provider as scheduled. Referrals: Kelby Self MD [Primary Care Provider] - As per Instructions
--- NOTE | 2018-11-17 16:18 | CPEKG ---
Test Reason : OPEN Blood Pressure : / mmHG Vent. Rate : 055 BPM Atrial Rate : 049 BPM P-R Int : 154 ms QRS Dur : 089 ms QT Int : 415 ms P-R-T Axes : 040 056 042 degrees QTc Int : 397 ms Sinus rhythm Confirmed by William Gonzalez ([id number]) on 11/17/2018 4:17:54 PM Referred By: William Gonzalez Confirmed By:William Gonzalez
[2018-11-17 16:29] LABS: PLATELET COUNT 288 10^3/uL (150-400)
[2018-11-17 16:51] VITALS: BP 119/76
== END 2018-11-17 17:02 | disposition home or self-care (01) ==
DX: M94.0 Chondrocostal junction syndrome [Tietze] (principal)
CPT/HCPCS: 84484-ER

== ENCOUNTER → 2018-11-30 | Outpatient (CLI) | payer OTHER | LOC: FIMAGING 10:22 ==

== ENCOUNTER → 2018-12-13 | Outpatient (CLI) | payer OTHER | LOC: FIMAGING 11:09 ==